=== PATIENT | female | born 1975 | race Caucasian/White ===

== ENCOUNTER 2021-12-11 11:13 | Emergency (ER) | payer OTHER ==
[2021-12-11 12:06] LABS: EOSINOPHIL 0 % (0-5); HCT 43.5 % (37.0-47.0); LYMPHOCYTE 23.8 % (15-48); MCH 36.5 pg (25.0-31.0); MCHC 34.5 g/dL (32.0-36.0); MCV 105.8 fL (78.0-100.0); MONOCYTE 5.8 % (0-12); MPV 9.1 fL (6.0-9.5); NEUTROPHIL 68.5 % (41-80); NRBC 0; PLT 271 K/uL (150-400); RBC 4.11 M/uL (4.20-5.40); RDW 12.6 % (11.5-14.0); WBC 11.3 K/uL (4.0-10.5)
[2021-12-11 12:09] LABS: INR 1.1 (0.9-1.2); PROTHROMBIN TIME 13.6 SECONDS (11.8-13.4); PTT 30.9 SECONDS (24.4-34.7)
[2021-12-11 12:37] LABS: ALBUMIN 3.9 g/dL (3.4-5.0); BILIRUBIN - TOTAL 0.3 mg/dL (0.2-1.0); BUN/CREAT RATIO (CALC) 19.2 RATIO; CREATININE 0.73 mg/dL (0.51-0.95); GLOBULIN (CALCULATION) 3.2 g/dL; POTASSIUM 3.9 mmol/L (3.5-5.1); TOTAL PROTEIN 7.1 g/dL (6.4-8.2)
== END 2021-12-11 18:10 | disposition other institution (70) ==
LOC: FER 11:13
PROVIDERS: Emergency Medicine
DX: I48.91 Unspecified atrial fibrillation (principal); I49.8 Other specified cardiac arrhythmias; F17.210 Nicotine dependence, cigarettes, uncomplicated
CPT/HCPCS: 36415; 71045; 80053; 82553; 84443; 84484; 85025; 85610; 85730; 93005

== ENCOUNTER 2022-01-14 18:33 | Emergency (ER) | payer OTHER ==
[2022-01-14 19:48] LABS: BASOPHIL 0.6 % (0-2); EOSINOPHIL 0 % (0-5); HCT 36.3 % (37.0-47.0); HGB 12.2 g/dl (12.5-16.0); LYMPHOCYTE 13.9 % (15-48); MCH 35.5 pg (25.0-31.0); MCHC 33.6 g/dL (32.0-36.0); MCV 105.5 fL (78.0-100.0); MONOCYTE 8.7 % (0-12); MPV 9.9 fL (6.0-9.5); NEUTROPHIL 76.5 % (41-80); NRBC 0; PLT 187 K/uL (150-400); RBC 3.44 M/uL (4.20-5.40); RDW 12.2 % (11.5-14.0); WBC 11.4 K/uL (4.0-10.5)
[2022-01-14 20:03] LABS: ALBUMIN 3.7 g/dL (3.4-5.0); BILIRUBIN - TOTAL 0.3 mg/dL (0.2-1.0); BUN/CREAT RATIO (CALC) 16.2 RATIO; CREATININE 0.8 mg/dL (0.51-0.95); GLOBULIN (CALCULATION) 2.8 g/dL; MAGNESIUM 1.7 mg/dL (1.8-2.4); PHOSPHORUS 3.7 mg/dL (2.6-4.7); POTASSIUM 3.9 mmol/L (3.5-5.1); TOTAL PROTEIN 6.5 g/dL (6.4-8.2)
[2022-01-14 21:57] LABS: CORONAVIRUS 2019 SARS-COV-2 NEGATIVE (NEGATIVE); INFLUENZA A NAA NEGATIVE (NEGATIVE)
[2022-01-14] MEDS ORDERED: LASIX20 MG PO (22:24)
== END 2022-01-15 00:13 | disposition home or self-care (01) ==
LOC: FER 18:33
PROVIDERS: Emergency Medicine
DX: R00.2 Palpitations (principal); E83.42 Hypomagnesemia; R60.0 Localized edema; R79.89 Other specified abnormal findings of blood chemistry; F17.200 Nicotine dependence, unspecified, uncomplicated; I48.92 Unspecified atrial flutter; Z79.01 Long term (current) use of anticoagulants; Z20.822 Contact with and (suspected) exposure to COVID-19
CPT/HCPCS: 36415; 71045; 80053; 83735; 83880; 84100; 84484; 85025; 93005; J1885; J1940; J2405; J3475; J7030; J7050; U0002